=== PATIENT | male | born 1945 | race Caucasian/White ===

== ENCOUNTER 2021-07-02 18:29 | Inpatient (IN) ==
[2021-07-02 18:58] LABS: Appearance Urine Clear (Clear); Bilirubin Urine Negative (Negative); Blood Urine Negative (Negative); Color Urine Yellow; Glucose Urine UA Negative (Negative); Ketones Urine Negative (Negative); Leukocyte Esterase Urine Negative (Negative); Nitrite Urine Negative (Negative); Protein Urine Negative (Negative); Specific Gravity Urine 1.011 (1.000-1.030); Urobilinogen Urine Negative (Negative); pH Urine 6.5 (4.5-7.5)
[2021-07-02 19:03] LABS: Hematocrit (blood only) 37.4 % (42-52); Hemoglobin 12.3 g/dL (14.0-18.0); Mean Corpuscular Hemoglobin 30.1 pg (25-34); Mean Corpuscular Hgb Conc 32.9 g/dL (32-36); Mean Corpuscular Volume 91.7 fL (80-100); Mean Platelet Volume 9.2 fL (7.4-10.4); Platelet Count 267 K/uL (130-400); RDW Coefficient of Variation 12.9 % (11.5-14.5); RDW Standard Deviation 43.6 fL (36.4-46.3); Red Blood Count 4.08 M/uL (4.7-6.1); White Blood Count 7.97 K/uL (4.8-10.8)
[2021-07-02 19:19] LABS: BUN Creatinine Ratio 11.8 (10-20); Blood Urea Nitrogen 40 mg/dl (7-18); Calcium 8.4 mg/dl (8.5-10.1); Carbon Dioxide 28 mmol/L (21-32); Chloride 103 mmol/L (98-107); Creatinine Clr Calc Pharmacy 25.7 ml/min; Est GFR (African American) 19.5 ml/min; Est GFR (Non-African American) 16.8 ml/min; Glucose 104 mg/dl (70-99); Potassium 4.3 mmol/L (3.5-5.1); Sodium 137 mmol/L (136-145)
--- NOTE | 2021-07-02 19:47 | Emergency Department Note ---
Impression & Plan Acute kidney injury, Parkinson disease, Hypertension ED Provider Note NAME: ANDREI CHE AGE: 75 SEX: M : 1945 ARRIVES VIA: Walk-In INFORMANT: Patient ED PROVIDER(S): Liam Sullivan DO CHIEF COMPLAINT: weak and run down HPI: Patient is a 75-year-old male who presents the ER for weakness. [facility] and had acute kidney injury. He has a history of diabetes, CAD with stents, hypertension and BPH with no previous CKD. Patient denies any headache or change in vision. No chest pain or shortness of breath. No vomiting or diarrhea. He admits to intermittent nausea which is unchanged. Over the past several weeks he notes he has been having trouble urinating. He will only go a little bit time. ROS: See above HPI for pertinent positives & negatives. A total of 10 systems reviewed and were otherwise negative. PAST MEDICAL HISTORY:See Below PAST SURGICAL HISTORY:See Below FAMILY HISTORY:See Below SOCIAL HISTORY:See Below HOME MEDICATIONS:See Below ALLERGIES:See Below VITALS:See Below PHYSICAL EXAMINATION: GENERAL: Sitting up in bed, alert, well appearing, well nourished, no distress, non-toxic EYE EXAM: normal conjunctiva. OROPHARYNX: no exudate, no erythema, lips, buccal mucosa, and tongue normal and mucous membranes are moist NECK: supple, no nuchal rigidity, no adenopathy, non-tender LUNGS: Clear to auscultation. Normal chest wall mechanics HEART: no murmurs, S1 normal and S2 normal ABDOMEN: abdomen soft, non-tender, normo-active bowel sounds, no masses, no rebound or guarding. UPPER EXTREMITIES: upper extremities are grossly normal. LOWER EXTREMITIES: No pitting edema. NEURO EXAM: Normal sensorium, cranial nerves II-XII grossly intact, normal speech, no gross weakness of arms, no gross weakness of legs. MEDICAL DECISION MAKING: Patient is a 75-year-old male who presents the ER for acute kidney injury referred in by his PCP. IV was established blood work was obtained. Labs showed no significant leukocytosis or anemia. BMP with a creatinine of 3.4. No previous to go off of. From records sent over his no previous history of any CKD. T bili and LFTs were unremarkable. Lipase was normal. UA was clean. Post void was 0. Ultrasound of the kidneys and bladder was fairly unremarkable. Patient was given IV fluids updated bedside discussed with the hospitalist admitted to [facility]. Triage Nursing notes reviewed. Limited review of prior medical records performed Vital Signs: reviewed and remarkable for HTN Differential diagnosis: Infection, dehydration, metabolic abnormality, hypo/hyperglycemia, electrolyte disturbance, anemia, hypoxia, cardiac sources, intracerebral event, toxicologic, neurologic, as well as other pathologies. ER treatment provided: See below Diagnostics interpreted by me: Cardiac Monitoring: An order was placed for continuous cardiac monitoring. The monitor shows a rate of 52 with sinus rhythm. Laboratory studies: As stated above and show below. Imaging studies: Renal ultrasound showed no obstruction Consultation(s): Discussed with [facility] for further evaluation Procedures: none Critical Care: None Past Med/Surg History Medical History (Updated 07/02/21 @ 22:29 by Shaye Parra DO) Agent orange exposure [employer] GERD (gastroesophageal reflux disease) Thoracic aortic aneurysm Surgical History (Updated 07/02/21 @ 21:44 by Shaye Parra DO) H/O cataract removal with insertion of prosthetic lens History of endoscopy History of fundoplication S/P CABG x 4 Social History Smoking Status: Never smoker Feels Safe at Home: Yes Allergies Allergies Allergy/AdvReac Type Severity Reaction Status Date / Time No Known Allergies Allergy Verified 07/02/21 21:02 Home Meds Home Medications Medication Instructions Recorded Confirmed aspirin 81 mg tablet,delayed 81 mg PO DAILY 07/02/21 07/02/21 release atorvastatin 80 mg tablet 80 mg PO DAILY 07/02/21 07/02/21 carbidopa 25 mg-levodopa 100 mg 1.5 tab PO QID 07/02/21 07/02/21 tablet chlorthalidone 50 mg tablet 25 mg PO DAILY 07/02/21 07/02/21 gabapentin 300 mg capsule 300 mg PO QID 07/02/21 07/02/21 losartan 100 mg tablet 100 mg PO DAILY 07/02/21 07/02/21 metformin 500 mg tablet 500 mg PO DAILY 07/02/21 07/02/21 multivitamin 1 tab PO DAILY 07/02/21 07/02/21 omega 4-crn-osr-fish oil 1,000 mg 1 cap PO QID 07/02/21 07/02/21 (120 mg-180 mg) capsule (Fish Oil) rasagiline 1 mg tablet 1 mg PO DAILY 07/02/21 07/02/21 tamsulosin 0.4 mg capsule (Flomax) 0.4 mg PO DAILY 07/02/21 07/02/21 trazodone 50 mg tablet 50 mg PO HS 07/02/21 07/02/21 Results & Data (ED) Vital Signs Vital Signs - 24 hr 07/02/21 18:40 07/02/21 21:08 07/02/21 21:09 Temperature 36.7 C Temperature Source Temporal Artery Scan Pulse Rate 59 L 58 L Pulse Rate [Left Finger] 54 L Pulse Rate from SpO2 Sensor Pulse Rhythm Regular Respiratory Rate 18 18 20 Respiratory Effort / Characteristics Non-Labored Spontaneous Spontaneous Respiratory Depth Normal Blood Pressure 169/89 H Blood Pressure [Right Arm] 172/95 H Blood Pressure Mean 115 Blood Pressure Mean [Right Arm] 120 Pulse Oximetry 96 92 96 Oxygen Delivery Method Room Air Room Air Sepsis Recent Fever Within 48 Hours No Sepsis New/Unexplained Change in Mental Status No Sepsis Action Taken by Nursing No Action Required 07/02/21 21:10 07/02/21 21:20 07/02/21 21:30 Temperature Temperature Source Pulse Rate 51 L 54 L 59 L Pulse Rate [Left Finger] Pulse Rate from SpO2 Sensor 53 L 50 L Pulse Rhythm Respiratory Rate 20 20 20 Respiratory Effort / Characteristics Respiratory Depth Blood Pressure 172/95 H Blood Pressure [Right Arm] Blood Pressure Mean 120 Blood Pressure Mean [Right Arm] Pulse Oximetry 94 97 94 Oxygen Delivery Method Room Air Sepsis Recent Fever Within 48 Hours Sepsis New/Unexplained Change in Mental Status Sepsis Action Taken by Nursing 07/02/21 21:40 07/02/21 21:50 07/02/21 22:00 Temperature Temperature Source Pulse Rate 50 L 67 50 L Pulse Rate [Left Finger] Pulse Rate from SpO2 Sensor 51 L 64 53 L Pulse Rhythm Respiratory Rate 20 20 16 Respiratory Effort / Characteristics Respiratory Depth Blood Pressure Blood Pressure [Right Arm] Blood Pressure Mean Blood Pressure Mean [Right Arm] Pulse Oximetry 91 98 92 Oxygen Delivery Method Sepsis Recent Fever Within 48 Hours Sepsis New/Unexplained Change in Mental Status Sepsis Action Taken by Nursing 07/02/21 22:10 Temperature Temperature Source Pulse Rate 49 L Pulse Rate [Left Finger] Pulse Rate from SpO2 Sensor 49 L Pulse Rhythm Respiratory Rate 21 Respiratory Effort / Characteristics Respiratory Depth Blood Pressure Blood Pressure [Right Arm] Blood Pressure Mean Blood Pressure Mean [Right Arm] Pulse Oximetry 95 Oxygen Delivery Method Room Air Sepsis Recent Fever Within 48 Hours Sepsis New/Unexplained Change in Mental Status Sepsis Action Taken by Nursing Laboratory Data Result diagrams: 07/02/21 18:45 07/02/21 18:45 Lab Results 07/02/21 07/02/21 07/02/21 Range/Units 18:45 18:45 19:55 WBC 7.97 (4.8-10.8) K/uL RBC 4.08 L (4.7-6.1) M/uL Hgb 12.3 L (14.0-18.0) g/dL Hct 37.4 L (42-52) % MCV 91.7 (80-100) fL MCH 30.1 (25-34) pg MCHC 32.9 (32-36) g/dL RDW Std Deviation 43.6 (36.4-46.3) fL RDW Coeff of Sundeep 12.9 (11.5-14.5) % Plt Count 267 (130-400) K/uL MPV 9.2 (7.4-10.4) fL Sodium 137 (136-145) mmol/L Potassium 4.3 (3.5-5.1) mmol/L Chloride 103 (98-107) mmol/L Carbon Dioxide 28 (21-32) mmol/L Anion Gap 5.0 (3-11) BUN 40 H (7-18) mg/dl Creatinine 3.42 H (0.6-1.4) mg/dl Est Cr Clr Drug Dosing 25.7 ml/min Est GFR ( Amer) 19.5 ml/min Est GFR (Non-Af Amer) 16.8 ml/min BUN/Creatinine Ratio 11.8 (10-20) Glucose 104 H (70-99) mg/dl Calcium 8.4 L (8.5-10.1) mg/dl Total Bilirubin 0.4 (0.2-1) mg/dl Direct Bilirubin < 0.1 (0-0.2) mg/dl AST 20 (15-37) U/L ALT 9 L (12-78) Alkaline Phosphatase 63 (45-117) U/L Total Protein 7.0 (6.4-8.2) gm/dl Albumin 3.4 (3.4-5.0) gm/dl Lipase 172 (73-393) U/L Urine Color Urine Appearance (Clear) Urine pH (4.5-7.5) Ur Specific [place] (1.000-1.030) Urine Protein (Negative) Urine Glucose (UA) (Negative) Urine Ketones (Negative) Urine Blood (Negative) Urine Nitrite (Negative) Urine Bilirubin (Negative) Urine Urobilinogen (Negative) Ur Leukocyte Esterase (Negative) SARS-CoV-2, RNA, NAAT NEGATIVE (NEGATIVE) 07/02/21 Range/Units Unknown WBC (4.8-10.8) K/uL RBC (4.7-6.1) M/uL Hgb (14.0-18.0) g/dL Hct (42-52) % MCV (80-100) fL MCH (25-34) pg MCHC (32-36) g/dL RDW Std Deviation (36.4-46.3) fL RDW Coeff of Sundeep (11.5-14.5) % Plt Count (130-400) K/uL MPV (7.4-10.4) fL Sodium (136-145) mmol/L Potassium (3.5-5.1) mmol/L Chloride (98-107) mmol/L Carbon Dioxide (21-32) mmol/L Anion Gap (3-11) BUN (7-18) mg/dl Creatinine (0.6-1.4) mg/dl Est Cr Clr Drug Dosing ml/min Est GFR ( Amer) ml/min Est GFR (Non-Af Amer) ml/min BUN/Creatinine Ratio (10-20) Glucose (70-99) mg/dl Calcium (8.5-10.1) mg/dl Total Bilirubin (0.2-1) mg/dl Direct Bilirubin (0-0.2) mg/dl AST (15-37) U/L ALT (12-78) Alkaline Phosphatase (45-117) U/L Total Protein (6.4-8.2) gm/dl Albumin (3.4-5.0) gm/dl Lipase (73-393) U/L Urine Color Yellow Urine Appearance Clear (Clear) Urine pH 6.5 (4.5-7.5) Ur Specific [place] 1.011 (1.000-1.030) Urine Protein Negative (Negative) Urine Glucose (UA) Negative (Negative) Urine Ketones Negative (Negative) Urine Blood Negative (Negative) Urine Nitrite Negative (Negative) Urine Bilirubin Negative (Negative) Urine Urobilinogen Negative (Negative) Ur Leukocyte Esterase Negative (Negative) SARS-CoV-2, RNA, NAAT (NEGATIVE) Administered Medications Discontinued Medications Sodium Chloride (Nss 1000ml) 1,000 mls @ 999 mls/hr IV .Q1H1M ONE Stop: 07/02/21 20:49 Last Infusion: 07/02/21 22:15 Dose: 0 mls/hr Documented by: [id number] Admin: 07/02/21 21:06 Dose: 999 mls/hr Documented by: [id number] Imaging Data Radiologist's Impression: Renal Ultrasound 07/02/21 19:40 RENAL ULTRASOUND HISTORY: Acute kidney injury. COMPARISON: None. FINDINGS: Right kidney: 14.1 cm. A 4.3 cm lower pole cyst. No hydronephrosis. Increased cortical echogenicity. Normal cortical thickness. Left kidney: 15.3 cm. No hydronephrosis. Increased cortical echogenicity. Normal cortical thickness. Bladder: Not well-distended but appears unremarkable. The ureteral jets are not identified this time. The prostate gland is mildly enlarged. IMPRESSION: 1. No hydronephrosis. 2. A 4.3 cm right renal cyst. 3. Slight increased cortical echogenicity. This favors medical renal disease. ACT 112: Negative or not required by law. Electronically signed by: Hossein Hernandez M.D. 07/02/2021 8:45 PM Discharge Plan Visit Data Chief Complaint: Flank Pain Stated Complaint: ACUTE KIDNEY INJURY, REFER'D BY ED Provider: Liam Sullivan Discharge Problem: Acute kidney injury, Parkinson disease, Hypertension Forms Stand Alone Forms: My [facility] wireLawyer Prescriptions Prescriptions: No Action multivitamin Tablet 1 tab PO DAILY RF: 0 metformin 500 mg Tablet 500 mg PO DAILY RF: 0 atorvastatin 80 mg Tablet 80 mg PO DAILY RF: 0 trazodone 50 mg Tablet 50 mg PO HS RF: 0 chlorthalidone 50 mg Tablet 25 mg PO DAILY RF: 0 aspirin 81 mg Tablet,Delayed Release (Dr/Ec) 81 mg PO DAILY RF: 0 tamsulosin [Flomax] 0.4 mg Capsule 0.4 mg PO DAILY RF: 0 gabapentin 300 mg Capsule 300 mg PO QID RF: 0 carbidopa-levodopa 25-100 mg Tablet 1.5 tab PO QID RF: 0 losartan 100 mg Tablet 100 mg PO DAILY RF: 0 rasagiline 1 mg Tablet 1 mg PO DAILY RF: 0 omega 3-pqs-cbz-fish oil [Fish Oil] 1,000 mg (120 mg-180 mg) Capsule 1 cap PO QID RF: 0 Referrals Referrals: Shaan Bui DO [Primary Care Provider] -
[2021-07-02] MEDS ORDERED: SODIUM CHLORIDE 0.9% 1000ML 1,000 ML IV ONE (19:49)
[2021-07-02 19:51] LABS: Alanine Aminotransferase 9 (12-78); Albumin Level 3.4 gm/dl (3.4-5.0); Alkaline Phosphatase 63 U/L (45-117); Aspartate Aminotransferase 20 U/L (15-37); Bilirubin Direct < 0.1 mg/dl (0-0.2); Lipase 172 U/L (73-393)
--- NOTE | 2021-07-02 20:46 | Ultrasound Report ---
RENAL ULTRASOUND HISTORY: Acute kidney injury. COMPARISON: None. FINDINGS: Right kidney: 14.1 cm. A 4.3 cm lower pole cyst. No hydronephrosis. Increased cortical echogenicity. Normal cortical thickness. Left kidney: 15.3 cm. No hydronephrosis. Increased cortical echogenicity. Normal cortical thickness. Bladder: Not well-distended but appears unremarkable. The ureteral jets are not identified this time. The prostate gland is mildly enlarged. IMPRESSION: 1. No hydronephrosis. 2. A 4.3 cm right renal cyst. 3. Slight increased cortical echogenicity. This favors medical renal disease. ACT 112: Negative or not required by law. Electronically signed by: Hossein Hernandez M.D. 07/02/2021 8:45 PM
[2021-07-02 21:09] LABS: Bilirubin,Total 0.4 mg/dl (0.2-1)
--- NOTE | 2021-07-02 21:51 | History & Physical Report ---
Date of Service July 02, 2021 Assessment & Plan (1) Acute kidney injury: Plan: 75yo Male sent by [place] PCP due to elevated creatinine found incidentally on yearly routine labs. PMH exposure to agent orange, [place] , parkinson's, CABGx4, DM2, HTN, peripheral neuropathy. ()FREDDIE -Creatinine 3.42, BUN 40 on admit, found incidentally on outpt labs. -patient denies kidney history -possible related to hx 1wk rash presumed viral exanthem -UA neg, WBC wnl -potassium 4.3, no anion gap acidosis -received NS bolus -Renal US: 4.3cm cyst on right kidney lower pole, no hydronephrosis -consider consult to nephrology -ordered urine creatinine, urea -ordered creatine kinase -trend BMP ()Parkinson's -continue home carbidopa/levodopa -continue rasagilire mosyfate -continue HS trazadone -reduced gabapentin to 300mg BID given kidney function ()Cardiac Disease CABGx4 -continue home atorvastatin, ASA -hold chlorthalidone, losartan ()DM2 -hold metformin given kidney function -started on insulin, TDD 52, CF 34, CR 8.6 ()HTN -held chlorthalidone, losartan given his kidney function ()BPH -continue flomax ()Bladder Pain -Tylenol ordered PRN ()Constipation -miralax PRN ()Anemia -hbg 12.3 on admit unsure baseline -MCV 91.7 normal FENa: heart healthy Code Status: conditional DNR DVT PPX: Bryce Shaye Parra Do PGY 1, FCM (2) Parkinson disease: (3) Hx of CABG: (4) Diabetes mellitus: (5) Hypertension: History of Present Illness Chief Complaint: Acute Kidney Injury Primary Care Provider: Shaan Bui, DO 75yo Male sent by [place] PCP due to elevated creatinine found incidentally on yearly routine labs. PMH exposure to agent orange, [place] , parkinson's, CABGx4, DM2, HTN, peripheral neuropathy. Patient seen at bedside, calm comfortable cooperative, states he's not experiencing any symptoms at this time. He states 1 week ago he suddenly developed a rash across b/l arms, legs, and torso within a day, stated it was not painful or itchy, no other symptoms or illness, has never happened before, resolved after 1 week without intervention. Per picture it was a pink macular patchy rash, uniform in color. He states that he has had ongoing 'bladder pain' for 5-6 months, no difficulty or hesitancy urinating, cardiology has tried decreasing his water pill which hasn't helped, was originally going to see urology for the first time today missed appointment. Otherwise he states he has chronic constipation, secondary to his parkinsons. Patient states most of his medical conditions are secondary to his agent orange exposure in [place]. [facility] Montano [facility] 4 months. He follows with Dr. Rivera in cardiology after his cabgx4, in 1996 and 2002. Patient follows with neurology for parkinsons's, follows with podiatry. He lives alone without pets, no recent illness or exposures. He is in charge of his medication, takes them regularly. He denies smoking, alcohol, illicit drugs, drinks 1c coffee daily. He has COVID and flu vaccination. Per discussion with patient he is DNR, is ok with intubation. Allergies Allergy/AdvReac Type Severity Reaction Status Date / Time No Known Allergies Allergy Verified 07/02/21 21:02 Home Medications Medication Instructions Recorded Confirmed Type aspirin 81 mg tablet,delayed 81 mg PO DAILY 07/02/21 07/02/21 History release atorvastatin 80 mg tablet 80 mg PO DAILY 07/02/21 07/02/21 History carbidopa 25 mg-levodopa 100 mg 1.5 tab PO QID 07/02/21 07/02/21 History tablet chlorthalidone 50 mg tablet 25 mg PO DAILY 07/02/21 07/02/21 History gabapentin 300 mg capsule 300 mg PO QID 07/02/21 07/02/21 History losartan 100 mg tablet 100 mg PO DAILY 07/02/21 07/02/21 History metformin 500 mg tablet 500 mg PO DAILY 07/02/21 07/02/21 History multivitamin 1 tab PO DAILY 07/02/21 07/02/21 History omega 7-wjp-jou-fish oil 1,000 mg 1 cap PO QID 07/02/21 07/02/21 History (120 mg-180 mg) capsule (Fish Oil) rasagiline 1 mg tablet 1 mg PO DAILY 07/02/21 07/02/21 History tamsulosin 0.4 mg capsule (Flomax) 0.4 mg PO DAILY 07/02/21 07/02/21 History trazodone 50 mg tablet 50 mg PO HS 07/02/21 07/02/21 History Past Med/Surg History Medical History Agent orange exposure [employer] BPH (benign prostatic hyperplasia) GERD (gastroesophageal reflux disease) Thoracic aortic aneurysm Surgical History H/O cataract removal with insertion of prosthetic lens History of endoscopy History of fundoplication S/P CABG x 4 Social History Smoking Status: Never smoker Feels Safe at Home: Yes Review of Systems Review of Systems: Constipation, rash Negative fever chills Negative headache dizziness, cough Negative chest pain palpitations SOB Negative nausea vomitting diarrhea belly pain, back pain, difficulty urinating Negative swelling Physical Exam Constitutional: WD/WN, vitals as above cooperative, comfortable and + ov erweight Eyes: PERRL, conjunctivae normal, anicteric sclerae Neck: trachea midline, no thyromegaly Respiratory: normal respiratory effort, lungs clear to auscultation Cardiovascular: RRR, no murmur, no edema Heart Sounds: normal S1 and normal S2 Gastrointestinal (Abdomen): normal bowel sounds, soft, nontender, no hepatosplenomegaly Musculoskeletal: no cyanosis or clubbing, extremities motor strength 5/5 Skin: no rashes, warm and dry Neurologic: Motor/Sensory: + tremor (at rest in hands) Psychiatric: A+Ox3, euthymic affect Results & Data Results & Data ([facility] [place]) Vital Signs (Past 12 Hours) Vital Signs Temp Pulse Pulse Resp BP BP Pulse Ox 07/02/21 21:20 54 L 20 97 07/02/21 21:10 51 L 20 172/95 H 94 07/02/21 21:09 58 L 20 96 07/02/21 21:08 54 L 18 172/95 H 92 07/02/21 18:40 36.7 C 59 L 18 169/89 H 96 Laboratory Results 07/02/21 07/02/21 07/02/21 Range/Units Unknown 19:55 18:45 WBC (4.8-10.8) K/uL RBC (4.7-6.1) M/uL Hgb (14.0-18.0) g/dL Hct (42-52) % MCV (80-100) fL MCH (25-34) pg MCHC (32-36) g/dL RDW Std Deviation (36.4-46.3) fL RDW Coeff of Sundeep (11.5-14.5) % Plt Count (130-400) K/uL MPV (7.4-10.4) fL Sodium 137 (136-145) mmol/L Potassium 4.3 (3.5-5.1) mmol/L Chloride 103 (98-107) mmol/L Carbon Dioxide 28 (21-32) mmol/L Anion Gap 5.0 (3-11) BUN 40 H (7-18) mg/dl Creatinine 3.42 H (0.6-1.4) mg/dl Est Cr Clr Drug Dosing 25.7 ml/min Est GFR ( Amer) 19.5 ml/min Est GFR (Non-Af Amer) 16.8 ml/min BUN/Creatinine Ratio 11.8 (10-20) Glucose 104 H (70-99) mg/dl Calcium 8.4 L (8.5-10.1) mg/dl Total Bilirubin 0.4 (0.2-1) mg/dl Direct Bilirubin < 0.1 (0-0.2) mg/dl AST 20 (15-37) U/L ALT 9 L (12-78) Alkaline Phosphatase 63 (45-117) U/L Total Protein 7.0 (6.4-8.2) gm/dl Albumin 3.4 (3.4-5.0) gm/dl Lipase 172 (73-393) U/L Urine Color Yellow Urine Appearance Clear (Clear) Urine pH 6.5 (4.5-7.5) Ur Specific [place] 1.011 (1.000-1.030) Urine Protein Negative (Negative) Urine Glucose (UA) Negative (Negative) Urine Ketones Negative (Negative) Urine Blood Negative (Negative) Urine Nitrite Negative (Negative) Urine Bilirubin Negative (Negative) Urine Urobilinogen Negative (Negative) Ur Leukocyte Esterase Negative (Negative) SARS-CoV-2, RNA, NAAT NEGATIVE (NEGATIVE) 07/02/21 Range/Units 18:45 WBC 7.97 (4.8-10.8) K/uL RBC 4.08 L (4.7-6.1) M/uL Hgb 12.3 L (14.0-18.0) g/dL Hct 37.4 L (42-52) % MCV 91.7 (80-100) fL MCH 30.1 (25-34) pg MCHC 32.9 (32-36) g/dL RDW Std Deviation 43.6 (36.4-46.3) fL RDW Coeff of Sundeep 12.9 (11.5-14.5) % Plt Count 267 (130-400) K/uL MPV 9.2 (7.4-10.4) fL Sodium (136-145) mmol/L Potassium (3.5-5.1) mmol/L Chloride (98-107) mmol/L Carbon Dioxide (21-32) mmol/L Anion Gap (3-11) BUN (7-18) mg/dl Creatinine (0.6-1.4) mg/dl Est Cr Clr Drug Dosing ml/min Est GFR ( Amer) ml/min Est GFR (Non-Af Amer) ml/min BUN/Creatinine Ratio (10-20) Glucose (70-99) mg/dl Calcium (8.5-10.1) mg/dl Total Bilirubin (0.2-1) mg/dl Direct Bilirubin (0-0.2) mg/dl AST (15-37) U/L ALT (12-78) Alkaline Phosphatase (45-117) U/L Total Protein (6.4-8.2) gm/dl Albumin (3.4-5.0) gm/dl Lipase (73-393) U/L Urine Color Urine Appearance (Clear) Urine pH (4.5-7.5) Ur Specific [place] (1.000-1.030) Urine Protein (Negative) Urine Glucose (UA) (Negative) Urine Ketones (Negative) Urine Blood (Negative) Urine Nitrite (Negative) Urine Bilirubin (Negative) Urine Urobilinogen (Negative) Ur Leukocyte Esterase (Negative) SARS-CoV-2, RNA, NAAT (NEGATIVE) Diagnostic Findings Renal Ultrasound 07/02/21 19:40 RENAL ULTRASOUND HISTORY: Acute kidney injury. COMPARISON: None. FINDINGS: Right kidney: 14.1 cm. A 4.3 cm lower pole cyst. No hydronephrosis. Increased cortical echogenicity. Normal cortical thickness. Left kidney: 15.3 cm. No hydronephrosis. Increased cortical echogenicity. Normal cortical thickness. Bladder: Not well-distended but appears unremarkable. The ureteral jets are not identified this time. The prostate gland is mildly enlarged. IMPRESSION: 1. No hydronephrosis. 2. A 4.3 cm right renal cyst. 3. Slight increased cortical echogenicity. This favors medical renal disease. ACT 112: Negative or not required by law. Electronically signed by: Hossein Hernandez M.D. 07/02/2021 8:45 PM Supervising Physician Co-Signing Physician Notes Patient seen and examined, chart reviewed, case discussed with Dr. Parra and I agree with the assessment and plan as outlined above. In brief, patient is a 75yo male with history of HTN, DM, PD and CAD s/p CABG x 4V presenting with incidentally discovered FREDDIE with BUN of 40 and Cr of 3.42. Patient denies urinary complaints. He is uncertain of preexisting renal disease. No recent illness although he does describe a rash appx 1 week ago which has since resolved. No new medications or changes in medications. Patient states he is eating well at home. No diarrhea, vomiting. On exam he is tremulous secondary to PD, NAD but is upset about his ongoing tremor HEENT - NC/AT, PERRL, MMM, neck supple Heart - +S1/S2, regular Lungs - CTA Abd - +BS, soft, NT/ND Ext- No edema No CVA tenderness Clear yellow urine in urinal at bedside Labs and images reviewed. K=4.3, HCO3=28, no anion gap Assessment/Plan - 75yo male with HTN, DM, CAD and PD presenting with worsening renal function found incidentally on labs. Uncertain of baseline renal function - no previous labs in system. Patient does not provide history consistent with volume loss - states he is eating well at home, no vomiting or diarrhea Recent rash ?viral infection ?allergic reaction ?strep infection UA is not consistent with infection or inflammation. No blood, protein, leukocytes. Renal US without obstruction or hydronephrosis. Suggests medical renal disease - patient with history of DM and CAD Patient is making urine and is metabolically stable - no need for HD -Request records from [place] to compare renal function -Check UA with microscopy -Check urine Na and urea to calculate FeUREA as patient is on diuretic medication -Check Antistreptolysin O for possible recent strep infection -Check CK total -Continue hydration with LR at 125mL/hr x 2 liters -Repeat chemistry in AM -montior UOP -Avoid nephrotoxic agents - Hold Losartan and Clorthalidone -Renal dosing where needed - Gabapentin reduced -Consider Nephrology consultation. -Remainder as above Resident Activity Tracking Resident Involvement: Resident Care Provided Care Provided: Adult Hospital Medicine
[2021-07-02] MEDS ORDERED: traZODone HCL 50 MG TAB PO ONE (22:27)
[2021-07-02] MEDS ORDERED: CARBIDOPA/LEVODOPA 25/100MG TAB ODT PO STA (23:04)
[2021-07-02] MEDS ORDERED: ACETAMINOPHEN 325 MG TAB PO PRN (23:39)
[2021-07-02] MEDS ORDERED: POLYETHYLENE (MIRALAX) 17 GM PACK PO PRN (23:39)
[2021-07-03 00:33] LABS: Creatine Kinase 87 U/L (39-308)
--- NOTE | 2021-07-03 00:37 | Billing Data ---
Date of Service July 02, 2021 Coding Level of Care Code 68709 Initial Inpt Care Lvl 3
[2021-07-03] MEDS: LACTATED RINGER'S 1,000 ML IV SCH ×2 (00:49→08:03)
[2021-07-03 01:11] LABS: Appearance Urine Clear (Clear); Bilirubin Urine Negative (Negative); Blood Urine Negative (Negative); Color Urine Yellow; Glucose Urine UA Negative (Negative); Ketones Urine Negative (Negative); Leukocyte Esterase Urine Negative (Negative); Nitrite Urine Negative (Negative); Protein Urine Negative (Negative); Specific Gravity Urine 1.007 (1.000-1.030); Urobilinogen Urine Negative (Negative)
[2021-07-03 05:56] LABS: Basophils # (auto) 0.03 K/uL (0-0.2); Basophils % (auto) 0.4 %; Eosinophils # (auto) 0.34 K/uL (0-0.5); Hematocrit (blood only) 32.7 % (42-52); Hemoglobin 10.7 g/dL (14.0-18.0); Immature Granulocytes # (auto) 0.02 K/uL (0.00-0.02); Immature Granulocytes % (auto) 0.3 %; Lymphocytes # (auto) 1.21 K/uL (1.2-3.4); Lymphocytes % (auto) 17.8 %; Mean Corpuscular Hemoglobin 30.1 pg (25-34); Mean Corpuscular Hgb Conc 32.7 g/dL (32-36); Mean Corpuscular Volume 92.1 fL (80-100); Mean Platelet Volume 9.2 fL (7.4-10.4); Monocytes # (auto) 0.65 K/uL (0.11-0.59); Monocytes % (auto) 9.6 %; Neutrophils # (auto) 4.55 K/uL (1.4-6.5); Neutrophils % (auto) 66.9 %; Platelet Count 248 K/uL (130-400); RDW Coefficient of Variation 12.9 % (11.5-14.5); RDW Standard Deviation 44.1 fL (36.4-46.3); Red Blood Count 3.55 M/uL (4.7-6.1)
[2021-07-03] MEDS: CARBIDOPA/LEVODOPA 25/100MG TAB PO SCH ×4 (06:24→17:49)
[2021-07-03 06:25] LABS: BUN Creatinine Ratio 12.3 (10-20); Calcium 8.2 mg/dl (8.5-10.1); Creatinine Clr Calc Pharmacy 30.6 ml/min; Est GFR (African American) 24.1 ml/min; Est GFR (Non-African American) 20.8 ml/min
[2021-07-03] MEDS ORDERED: Nursing to Pharmacy Communication SCH (06:30)
--- NOTE | 2021-07-03 07:58 | Hospitalist Progress Note ---
Date of Service July 03, 2021 Assessment & Plan (1) Acute kidney injury: Plan: 75yo Male with PMH exposure to agent orange, parkinson's, CABGx4, DM2, HTN, peripheral neuropathy [facility] creatinine found incidentally on yearly routine labs. ()FREDDIE -Creatinine 3.42, BUN 40 on admit, found incidentally on outpt labs. -UA neg, WBC wnl -received NS bolus - Continue LR @ 125 cc/hr -Renal US: 4.3cm cyst on right kidney lower pole, no hydronephrosis -Nephrology consulted: - Suspect FREDDIE due to relative hypotension - Agree w/ stopping ARB and thiazide - Continue gentle hydration ()Parkinson's -continue home carbidopa/levodopa -continue rasagiline mosyfate -continue HS trazadone -reduced gabapentin to 300mg BID given kidney function ()Cardiac Disease CABGx4 -continue home atorvastatin, ASA -hold chlorthalidone, losartan ()DM2 -hold metformin given kidney function -SSI while admitted ()HTN -held chlorthalidone, losartan given his kidney function - Per npehro c/s: * Agree w/ stopping Losartan and Chlorthalidone due to FREDDIE * If BP trends up, consider low dose Amlodipine therapy ()BPH -continue Flomax ()Bladder Pain -Tylenol ordered PRN ()Constipation -miralax PRN ()Anemia -hbg 12.3 on admit unsure baseline -MCV 91.7 normal FENGI: heart healthy diet, LR 125cc/hr Code Status: conditional DNR DVT PPX: Heparin SQ Dispo: Med/Tele (2) Parkinson disease: (3) Hx of CABG: (4) Diabetes mellitus: (5) Hypertension: Admission and Anticipated Discharge Date Admission Date: July 02, 2021 Supervising Physician Co-Signing Physician Notes Patient seen and examined, chart reviewed, case discussed with Dr. Lakshmi Prescott and I agree with the assessment and plan as outlined above. In brief, patient is a 75yo male with history of HTN, DM, PD and CAD s/p CABG x 4V presenting with incidentally discovered FREDDIE with BUN of 40 and Cr of 3.42. Patient denies urinary complaints. He is uncertain of preexisting renal disease. No recent illness although he does describe a rash appx 1 week ago which has since resolved. No new medications or changes in medications. Patient states he is eating well at home. No diarrhea, vomiting. HEENT - NC/AT, PERRL, MMM, neck supple Clear yellow urine in urinal at bedside Labs and images reviewed. Assessment/Plan - 75yo male with HTN, DM, CAD and PD presenting with worsening renal function found incidentally on labs. Uncertain of baseline renal function - no previous labs in system. Patient does not provide history consistent with volume loss - states he is eating well at home, no vomiting or diarrhea Recent rash ?viral infection ?allergic reaction ?strep infection UA is not consistent with infection or inflammation. No blood, protein, leukocytes. Renal US without obstruction or hydronephrosis. Suggests medical renal disease - patient with history of DM and CAD Patient is making urine and is metabolically stable - no need for HD -montior UOP -Avoid nephrotoxic agents - Hold Losartan and Clorthalidone -Renal dosing where needed - Gabapentin reduced -Ordered Nephrology consultation. -Remainder as above Subjective Seen at bedside this AM. Reports feeling well. Denying SANTOS, dizziness, n/v, abd pain, CP, palp, SOB, cough. He did report recently his BP has been running quite low to the point where he passed out at home. Review of Systems Review of Systems: per subjective Physical Exam Physical Exam: GENERAL: A&Ox3. NAD. HEENT: PERRL, EOMI. Moist mucous membranes. CHEST/LUNGS: CTAB A/P. No crackles, wheezes, rales, rhonchi. HEART: RRR. No m/g/r. ABDOMEN: NT/ND, soft. BS+ x4 EXTREMITIES: 1+ edema bilaterally (baseline per pt). No cyanosis, no clubbing. NEUROLOGIC: No FND. CN II-XII grossly intact. Results & Data Results & Data ([facility]) Vital Signs (Past 12 Hours) Vital Signs Temp Pulse Pulse Resp BP BP Pulse Ox 07/03/21 07:31 40 L 16 131/76 94 07/03/21 03:00 36.7 C 47 L 18 130/78 95 07/03/21 01:07 84 16 136/89 95 07/02/21 22:40 51 L 20 94 07/02/21 22:30 51 L 20 95 07/02/21 22:20 56 L 20 97 07/02/21 22:10 49 L 21 95 07/02/21 22:00 50 L 16 92 07/02/21 21:50 67 20 98 07/02/21 21:40 50 L 20 91 07/02/21 21:30 59 L 20 94 07/02/21 21:20 54 L 20 97 07/02/21 21:10 51 L 20 172/95 H 94 07/02/21 21:09 58 L 20 96 07/02/21 21:08 54 L 18 172/95 H 92 Resident Activity Tracking Resident Involvement: Resident Care Provided Care Provided: Adult Hospital Medicine
[2021-07-03] MEDS: ASPIRIN 81 MG ECTAB PO SCH (08:06)
[2021-07-03] MEDS: ATORVASTATIN 40 MG TAB PO SCH (08:06)
[2021-07-03] MEDS: TAMSULOSIN HCL 0.4 MG CAP PO SCH (08:07)
[2021-07-03] MEDS: OMEGA-3 (PURIFIED FISH OIL) 1 GM CAP PO SCH ×4 (08:07→21:24)
[2021-07-03] MEDS: GABAPENTIN 300 MG CAP PO SCH ×2 (08:08→21:24)
[2021-07-03] MEDS: MULTIVITAMIN TAB PO SCH (08:08)
[2021-07-03] MEDS ORDERED: CARBIDOPA/LEVODOPA 25/100MG TAB PO SCH (09:00)
--- NOTE | 2021-07-03 12:12 | Nephrology Consultation ---
Date of Consultation July 03, 2021 Assessment & Plan (1) Acute kidney injury: * Urine sediment is non-nephritic. Renal US is negative for obstruction. Suspect FREDDIE due to relative hypotension * Agree w/ stopping ARB and thiazide * Continue gentle hydration * Monitor PRP * Baseline Cr is unknown. Await records[facility]labs from [facility] (2) Hypertension: * Patient reports labile BP, most recently low and associated w/ syncopal event * Agree w/ stopping Losartan and Chlorthalidone due to FREDDIE * If BP trends up, consider low dose Amlodipine therapy (3) Diabetes mellitus: * Recommend holding Metformin until FREDDIE resolves and manage DM w/ RISS (4) Neuropathy: * Recommend reducing Gabapentin to 300 mg daily until FREDDIE resolves (5) Parkinson disease: History of Present Illness Reason for Consultation: FREDDIE Attending Physician: Alex Stubbs History of Present Illness Mr. Franklin is a 75 year old white male who is seen at the request of the [facility] for evaluation of FREDDIE. Medical records in the EMR were reviewed today and are summarized as follows: Mr. Franklin is a and had his medical care through the [facility]. His medical history is significant for Parkinson's disease, HTN, AODM, ASCVD s/p stent x4, exposurt to agent orange and peripheral neuropathy. He denies any prior h/o kidney disease. Specifically he has had not fever, flank pain, gross hematuria, foamy urine or difficulty voiding. He has not taken NSAIDS, herbal supplements on a regular basis. He denies N/V/D. Mr. Franklin reports that over the last 2 months his BP has steadily dropped. His SBP was regularly in the low to mid 70's and he suffered one syncopal event at home without injury. Recently Mr. Franklin had laboratory studies completed for his [facility] physician. Cr was elevated at 3.42 and EMD evaluation was advised. Since admission to the hospital Mr. Franklin has received IV hydration, Losartan and Chlorthalidone have been stopped. Metformin is being held. Renal US was negative for stone/mass/obstruction. Cr has improved to 2.87 with conservative measures. Patient did relate a recent h/o diffuse petechial rash. ASO titer is pending. Allergies Allergy/AdvReac Type Severity Reaction Status Date / Time No Known Allergies Allergy Verified 07/02/21 21:02 Home Medications Medication Instructions Recorded Confirmed Type aspirin 81 mg tablet,delayed 81 mg PO DAILY 07/02/21 07/02/21 History release atorvastatin 80 mg tablet 80 mg PO DAILY 07/02/21 07/02/21 History carbidopa 25 mg-levodopa 100 mg 1.5 tab PO QID 07/02/21 07/02/21 History tablet chlorthalidone 50 mg tablet 25 mg PO DAILY 07/02/21 07/02/21 History gabapentin 300 mg capsule 300 mg PO QID 07/02/21 07/02/21 History losartan 100 mg tablet 100 mg PO DAILY 07/02/21 07/02/21 History metformin 500 mg tablet 500 mg PO DAILY 07/02/21 07/02/21 History multivitamin 1 tab PO DAILY 07/02/21 07/02/21 History omega 4-iuf-bic-fish oil 1,000 mg 1 cap PO QID 07/02/21 07/02/21 History (120 mg-180 mg) capsule (Fish Oil) rasagiline 1 mg tablet 1 mg PO DAILY 07/02/21 07/02/21 History tamsulosin 0.4 mg capsule (Flomax) 0.4 mg PO DAILY 07/02/21 07/02/21 History trazodone 50 mg tablet 50 mg PO HS 07/02/21 07/02/21 History Patient History Medical History Agent orange exposure [employer] BPH (benign prostatic hyperplasia) GERD (gastroesophageal reflux disease) Thoracic aortic aneurysm Surgical History H/O cataract removal with insertion of prosthetic lens History of endoscopy History of fundoplication S/P CABG x 4 Social History Smoking Status: Never smoker Feels Safe at Home: Yes Review of Systems Constitutional: + weakness; no fever Eyes: no worsening vision Ear, Nose, Mouth, Throat: no problem reported Respiratory: no cough and no dyspnea Cardiovascular: no chest pain, no palpitations and no edema Gastrointestinal: no abdominal pain, no nausea, no vomiting and no diarrhea/loose stools Genitourinary: no dysuria, no urinary hesitancy or no hematuria Musculoskeletal: no back pain Integumentary: no rash Neurologic: no confusion Physical Exam Constitutional: not in distress Eyes: PERRL, conjunctivae normal, anicteric sclerae ENMT: external ear and nose normal, oropharynx normal Neck: trachea midline, no thyromegaly Respiratory: normal respiratory effort, lungs clear to auscultation Cardiovascular: Rate/Rhythm: regular rate and regular rhythm Extremities: + edema (trace pretibial pitting edema) Gastrointestinal (Abdomen): normal bowel sounds, soft, nontender, no hepatosplenomegaly Skin: no rashes, warm and dry Neurologic: awake; not confused Motor/Sensory: + tremor Results & Data ([facility]) Vital Signs (Past 12 Hours) Vital Signs Temp Pulse Resp BP Pulse Ox 07/03/21 10:55 46 L 16 143/75 H 96 07/03/21 07:31 40 L 16 131/76 94 07/03/21 03:00 36.7 C 47 L 18 130/78 95 07/03/21 01:07 84 16 136/89 95 Laboratory Results Laboratory Tests 07/03/21 07/03/21 07/03/21 01:04 01:04 05:13 WBC 6.80 Hgb 10.7 L Hct 32.7 L Plt Count 248 Sodium Potassium Chloride Carbon Dioxide BUN Creatinine Urine Color Yellow Urine Appearance Clear Urine pH 7.0 Ur Specific Superior 1.007 Urine Protein Negative Urine Glucose (UA) Negative Urine Ketones Negative Urine Blood Negative Urine Nitrite Negative Urine Bilirubin Negative Ur Leukocyte Esterase Negative Ur Random Creatinine 38.0 Ur Random Urea Nitrogn 254 07/03/21 05:13 WBC Hgb Hct Plt Count Sodium 137 Potassium 4.0 Chloride 106 Carbon Dioxide 24 BUN 35 H Creatinine 2.87 H D Urine Color Urine Appearance Urine pH Ur Specific Superior Urine Protein Urine Glucose (UA) Urine Ketones Urine Blood Urine Nitrite Urine Bilirubin Ur Leukocyte Esterase Ur Random Creatinine Ur Random Urea Nitrogn Diagnostic Findings 07/02/21 Renal US: Right kidney: 14.1 cm. A 4.3 cm lower pole cyst. No hydronephrosis. Increased cortical echogenicity. Normal cortical thickness. Left kidney: 15.3 cm. No hydronephrosis. Increased cortical echogenicity. Normal cortical thickness. Bladder: Not well-distended but appears unremarkable. The ureteral jets are not identified this time. The prostate gland is mildly enlarged. PG Care Time/CCT Total # of Minutes Spent Total Time Spent with Patient: Total time spent is greater than 50% in coordination of care (as documented) at patient's floor/unit and/or counseling patient: Coding Level of Care Code 32742 Inpt Consult Level 5 Diagnoses Acute kidney injury N17.9 Hypertension I10 Diabetes mellitus E11.9 Parkinson disease G20 Neuropathy G62.9
[2021-07-03] MEDS ORDERED: PHARMACY GLYCEMIC MGMT CONSULT PRN (18:27)
[2021-07-03] MEDS ORDERED: CARBOHYDRATES FOR HYPOGLYCEMIA PO PRN (19:15)
[2021-07-03] MEDS ORDERED: GLUCOSE 10 TABS/TUBE PO PRN (19:15)
[2021-07-03] MEDS ORDERED: GLUCAGON FOR INJ 1 MG VIAL IM PRN (19:15)
[2021-07-03] MEDS ORDERED: GLUCOSE 40% GEL 15 GM TUBE PO PRN (19:15)
[2021-07-03] MEDS ORDERED: DEXTROSE 50% 50 ML SYRINGE IV PRN (19:15)
--- NOTE | 2021-07-03 20:13 | Billing Data ---
Date of Service July 03, 2021 Coding Level of Care Code 23510 Subseq Hosp Care Lvl 2
[2021-07-03] MEDS: traZODone HCL 50 MG TAB PO SCH (21:25)
[2021-07-03] MEDS: INSULIN ASPART PER UNIT SC SCH (21:25)
[2021-07-03] MEDS: HEPARIN SOD 5,000 UNIT/0.5 ML VIAL SQ SCH (21:28)
[2021-07-04] MEDS: CARBIDOPA/LEVODOPA 25/100MG TAB PO SCH ×4 (06:12→17:31)
[2021-07-04 06:46] LABS: Basophils # (auto) 0.03 K/uL (0-0.2); Basophils % (auto) 0.5 %; Eosinophils # (auto) 0.32 K/uL (0-0.5); Eosinophils % (auto) 4.9 %; Hematocrit (blood only) 34.4 % (42-52); Hemoglobin 11.6 g/dL (14.0-18.0); Immature Granulocytes # (auto) 0.01 K/uL (0.00-0.02); Immature Granulocytes % (auto) 0.2 %; Lymphocytes # (auto) 1.13 K/uL (1.2-3.4); Lymphocytes % (auto) 17.2 %; Mean Corpuscular Hemoglobin 30.9 pg (25-34); Mean Corpuscular Hgb Conc 33.7 g/dL (32-36); Mean Corpuscular Volume 91.5 fL (80-100); Mean Platelet Volume 9.2 fL (7.4-10.4); Monocytes # (auto) 0.72 K/uL (0.11-0.59); Monocytes % (auto) 10.9 %; Neutrophils # (auto) 4.37 K/uL (1.4-6.5); Neutrophils % (auto) 66.3 %; Platelet Count 239 K/uL (130-400); RDW Standard Deviation 43.7 fL (36.4-46.3); Red Blood Count 3.76 M/uL (4.7-6.1); White Blood Count 6.58 K/uL (4.8-10.8)
--- NOTE | 2021-07-04 07:21 | Hospitalist Progress Note ---
Date of Service July 04, 2021 Assessment & Plan (1) Acute kidney injury: Plan: 75yo Male with PMH exposure to agent orange, parkinson's, CABGx4, DM2, HTN, peripheral neuropathy [facility] creatinine found incidentally on yearly routine labs. FREDDIE - improving -Creatinine 3.42, BUN 40 on admit, found incidentally on outpt labs. -UA neg, WBC wnl - Cr downtrending further today to 2.69 - Continue LR @ 125 cc/hr - Renal US: 4.3cm cyst on right kidney lower pole, no hydronephrosis -Nephrology consulted: - Suspect FREDDIE due to relative hypotension - Agree w/ stopping ARB and thiazide - Continue gentle hydration - Creatinine improving but still elevated - Monitor BMP in AM Parkinson's -continue home carbidopa/levodopa -continue rasagiline mosyfate -continue HS trazadone -reduced gabapentin to 300mg BID given kidney function CAD - h/o CABGx4 -continue home atorvastatin, ASA -hold chlorthalidone, losartan DM2 -hold metformin given kidney function -SSI while admitted HTN -held chlorthalidone, losartan given his kidney function - Per npehro c/s: - Agree w/ stopping Losartan and Chlorthalidone due to FREDDIE - If BP trends up, consider low dose Amlodipine therapy BPH -continue Flomax Constipation -miralax PRN FENGI: heart healthy diet, LR 125cc/hr Code Status: conditional DNR DVT PPX: Heparin SQ Dispo: Med/Tele (2) Parkinson disease: (3) Hx of CABG: (4) Diabetes mellitus: (5) Hypertension: Admission and Anticipated Discharge Date Admission Date: July 02, 2021 Supervising Physician Co-Signing Physician Notes Patient seen and examined, chart reviewed, case discussed with Dr. Lakshmi Prescott and I agree with the assessment and plan as outlined above. In brief, patient is a 75yo male with history of HTN, DM, PD and CAD s/p CABG x 4V presenting with incidentally discovered FREDDIE with BUN of 40 and Cr of 3.42. Patient denies urinary complaints. He is uncertain of preexisting renal disease. No recent illness although he does describe a rash appx 1 week ago which has since resolved. No new medications or changes in medications. Patient states he is eating well at home. No diarrhea, vomiting. HEENT - NC/AT, PERRL, MMM, neck supple Clear yellow urine in urinal at bedside Labs and images reviewed. Assessment/Plan - 75yo male with HTN, DM, CAD and PD presenting with worsening renal function found incidentally on labs. Uncertain of baseline renal function - no previous labs in system. Patient does not provide history consistent with volume loss - states he is eating well at home, no vomiting or diarrhea Recent rash ?viral infection ?allergic reaction ?strep infection UA is not consistent with infection or inflammation. No blood, protein, leukocytes. Renal US without obstruction or hydronephrosis. Suggests medical renal disease - patient with history of DM and CAD Patient is making urine and is metabolically stable - no need for HD -Creatinine is improving. Will continue IVF. -Appreciate input from Nephro. -montior UOP -Avoid nephrotoxic agents - Hold Losartan and Clorthalidone -Renal dosing where needed - Gabapentin reduced -Ordered Nephrology consultation. -Remainder as above Subjective Patient seen this AM. He was walking from the bathroom to his bed without difficulty. He feels well and has no complaints. Denies f/c, n/v, abd pain, SOB, CP, SANTOS, dizziness. Review of Systems Review of Systems: per subjective Physical Exam Physical Exam: GENERAL: A&Ox3. NAD. HEENT: PERRL, EOMI. Moist mucous membranes. CHEST/LUNGS: CTAB A/P. No crackles, wheezes, rales, rhonchi. HEART: RRR. No m/g/r. Results & Data Results & Data ([facility]) Vital Signs (Past 12 Hours) Vital Signs Temp Pulse Pulse Resp BP Pulse Ox 07/04/21 03:11 37 C 79 16 122/68 95 07/03/21 23:32 36 L 07/03/21 23:29 37.3 C 72 18 145/74 H 94 07/03/21 19:53 37.3 C 82 18 125/68 93 Resident Activity Tracking Resident Involvement: Resident Care Provided Care Provided: Adult Hospital Medicine
[2021-07-04 07:26] LABS: BUN Creatinine Ratio 14.2 (10-20); Calcium 8.5 mg/dl (8.5-10.1); Creatinine Clr Calc Pharmacy 32.5 ml/min; Est GFR (Non-African American) 22.5 ml/min; Potassium 4.1 mmol/L (3.5-5.1)
[2021-07-04 08:30] LABS: Estimated Average Glucose 128 mg/dl; Hemoglobin A1C 6.1 % (4.5-5.6)
[2021-07-04] MEDS: OMEGA-3 (PURIFIED FISH OIL) 1 GM CAP PO SCH ×4 (08:32→20:36)
[2021-07-04] MEDS: TAMSULOSIN HCL 0.4 MG CAP PO SCH (08:32)
[2021-07-04] MEDS: ASPIRIN 81 MG ECTAB PO SCH (08:32)
[2021-07-04] MEDS: ATORVASTATIN 40 MG TAB PO SCH (08:32)
[2021-07-04] MEDS: MULTIVITAMIN TAB PO SCH (08:32)
[2021-07-04] MEDS: GABAPENTIN 300 MG CAP PO SCH ×2 (08:32→20:37)
[2021-07-04] MEDS: HEPARIN SOD 5,000 UNIT/0.5 ML VIAL SQ SCH ×2 (08:33→20:37)
[2021-07-04] MEDS: INSULIN ASPART PER UNIT SC SCH ×4 (08:34→21:22)
[2021-07-04] MEDS: LACTATED RINGER'S 1,000 ML IV SCH ×2 (10:30→19:20)
--- NOTE | 2021-07-04 10:32 | Nephrology Progress Note ---
Date of Service July 04, 2021 Assessment & Plan (1) Acute kidney injury: Plan: * Cr has improved from 3.4 down to 2.7 with conservative measures * Patient is nonoliguric. Urine sediment is non-nephritic. Renal US is negative for obstruction. Suspect FREDDIE due to relative hypotension * Continue to hold ARB and thiazide * BP has improved. IVF have been stopped * Baseline Cr is unknown. Records/labs have been requested from [facility] (2) Hypertension: Plan: * Patient reports labile BP, most recently low and associated w/ syncopal event * Agree w/ stopping Losartan and Chlorthalidone due to FREDDIE * If BP trends up, consider low dose Amlodipine therapy (3) Diabetes mellitus: Plan: * Recommend holding Metformin until FREDDIE resolves and manage DM w/ RISS (4) Neuropathy: Plan: * Recommend reducing Gabapentin to 300 mg daily until FREDDIE resolves (5) Parkinson disease: Admission and Anticipated Discharge Date Admission Date: July 02, 2021 Subjective Mr. Franklin was evaluated in his hospital room this morning. He denied fever, flank pain, difficulty voiding or uremic symptoms. He voiced no new medical concerns. Review of Systems Constitutional: + weakness; no fever Eyes: no worsening vision Ear, Nose, Mouth, Throat: no problem reported Respiratory: no cough and no dyspnea Cardiovascular: no chest pain, no palpitations and no edema Gastrointestinal: no abdominal pain, no nausea, no vomiting and no diarrhea/loose stools Genitourinary: no dysuria, no urinary hesitancy or no hematuria Musculoskeletal: no back pain Integumentary: no rash Neurologic: no confusion Physical Exam Constitutional: not in distress Eyes: PERRL, conjunctivae normal, anicteric sclerae ENMT: external ear and nose normal, oropharynx normal Neck: trachea midline, no thyromegaly Respiratory: normal respiratory effort, lungs clear to auscultation Cardiovascular: Rate/Rhythm: regular rate and regular rhythm Extremities: + edema (trace pretibial pitting edema) Gastrointestinal (Abdomen): normal bowel sounds, soft, nontender, no hepatosplenomegaly Skin: no rashes, warm and dry Neurologic: awake; not confused Motor/Sensory: + tremor Results & Data ([facility]) Vital Signs (Past 12 Hours) Vital Signs Temp Pulse Pulse Resp BP BP Pulse Ox 07/04/21 07:54 36.2 C L 41 L 16 162/82 H 90 07/04/21 07:28 42 L 07/04/21 03:11 37 C 79 16 122/68 95 07/03/21 23:32 36 L 07/03/21 23:29 37.3 C 72 18 145/74 H 94 Laboratory Results Laboratory Tests 07/04/21 07/04/21 06:30 06:30 WBC 6.58 Hgb 11.6 L Hct 34.4 L Plt Count 239 Sodium 138 Potassium 4.1 Chloride 106 Carbon Dioxide 25 BUN 38 H Creatinine 2.69 H Glucose 85 Calcium 8.5 PG Care Time/CCT Total # of Minutes Spent Total Time Spent with Patient: Total time spent is greater than 50% in coordination of care (as documented) at patient's floor/unit and/or counseling patient: Coding Level of Care Code 23845 Subseq Hosp Care Lvl 3 Diagnoses Acute kidney injury N17.9 Hypertension I10 Diabetes mellitus E11.9 Neuropathy G62.9 Parkinson disease G20
--- NOTE | 2021-07-04 12:12 | Pharmacy Report ---
Pharmacy Glycemic Short Note 2 - Date of Service July 04, 2021 - Glycemic Short BSG Results (Last 24 hours): 07/03/21 07/03/21 07/04/21 18:04 20:35 06:30 Glucose 85 POC Glucose 100 H 125 H 07/04/21 07/04/21 07:12 11:00 Glucose POC Glucose 94 103 H OUTPATIENT ANTIDIABETIC REGIMEN: * metformin 500mg PO daily * A1c = 6.1% 07/04/21 ASSESSMENT: * Type 2 diabetic admitted for FREDDIE possibly from relative hypotension * He was well controlled with metformin monotherapy however this is held in light of FREDDIE * Will initiate weight-based Novolog SQ using "mild" stress doses as pt likely remains fairly insulin sensitive PLAN FOR INPATIENT GLYCEMIC CONTROL: * Hold outpatient oral diabetes medications (metformin) * Basal insulin * none at this time * Bolus insulin * NovoLog per scale ACHS or Q6hrs while NPO * Goal Range: Low 110 mg/dL - High 140 mg/dL * Correction Factor: 40 mg/dL/unit * Nutritional / Prandial insulin per carb ratio of 1 unit per 20 grams CHO consumed PLAN FOR DISCHARGE: * A1c of 6.1% is at goal. Resumption of metformin on discharge will depend upon renal fxn recovery. AACE and ADA state use in patients with eGFR 30-45 can be considered with close monitoring however maximum recommended dose in this setting is 500mg BID. If his GFR has improved to this range one may consider resumption of his 500mg daily dose.
--- NOTE | 2021-07-04 20:15 | Billing Data ---
Date of Service July 04, 2021 Coding Level of Care Code 82311 Subseq Hosp Care Lvl 2
[2021-07-04] MEDS: traZODone HCL 50 MG TAB PO SCH (20:36)
[2021-07-05] MEDS: CARBIDOPA/LEVODOPA 25/100MG TAB PO SCH ×4 (05:43→17:37)
--- NOTE | 2021-07-05 08:04 | Hospitalist Progress Note ---
Date of Service July 05, 2021 Assessment & Plan (1) Acute kidney injury: Plan: 75yo Male with PMH exposure to agent orange, parkinson's, CABGx4, DM2, HTN, peripheral neuropathy sent by [place] PCP due to elevated creatinine found incidentally on yearly routine labs. FREDDIE - improving -Creatinine 3.42, BUN 40 on admit, found incidentally on outpt labs. -UA neg, WBC wnl - Renal US: 4.3cm cyst on right kidney lower pole, no hydronephrosis - Cr downtrending further today to 2.21 -Nephrology consulted: - Suspect FREDDIE due to relative hypotension - Continue to hold ARB and thiazide - Baseline Cr is unknown. Awaiting records[facility]labs from [facility] - Creatinine improving but still elevated - Will continue LR @ 125 cc/hr - Monitor BMP in AM Parkinson's -continue home carbidopa/levodopa -continue rasagiline mosyfate -continue HS trazadone -reduced gabapentin to 300mg BID given kidney function CAD - h/o CABGx4 -continue home atorvastatin, ASA -hold chlorthalidone, losartan DM2 -hold metformin given kidney function -SSI while admitted HTN -hold chlorthalidone, losartan given his kidney function - Per nephro c/s: - Recommend avoiding GARIMA/ARB due to FREDDIE associated w/ bradycardia/hypotension - Can start low dose amlodipine if BP trending up - Started amlodipine 5mg daily BPH -continue Flomax Constipation -Miralax PRN FENGI: heart healthy diet, LR 125cc/hr Code Status: conditional DNR DVT PPX: Heparin SQ Dispo: Med/Tele (2) Parkinson disease: (3) Hx of CABG: (4) Diabetes mellitus: (5) Hypertension: Admission and Anticipated Discharge Date Admission Date: July 02, 2021 Supervising Physician Co-Signing Physician Notes Patient seen and examined, chart reviewed, case discussed with Dr. Lakshmi Prescott and I agree with the assessment and plan as outlined above. In brief, patient is a 75yo male with history of HTN, DM, PD and CAD s/p CABG x 4V presenting with incidentally discovered FREDDIE with BUN of 40 and Cr of 3.42. Patient denies urinary complaints. He is uncertain of preexisting renal disease. No recent illness although he does describe a rash appx 1 week ago which has since resolved. No new medications or changes in medications. Patient states he is eating well at home. No diarrhea, vomiting. HEENT - NC/AT, PERRL, MMM, neck supple Clear yellow urine in urinal at bedside Labs and images reviewed. Assessment/Plan - 75yo male with HTN, DM, CAD and PD presenting with worsening renal function found incidentally on labs. Uncertain of baseline renal function - no previous labs in system. Patient does not provide history consistent with volume loss - states he is eating well at home, no vomiting or diarrhea Recent rash ?viral infection ?allergic reaction ?strep infection UA is not consistent with infection or inflammation. No blood, protein, leukocytes. Renal US without obstruction or hydronephrosis. Suggests medical renal disease - patient with history of DM and CAD Patient is making urine and is metabolically stable - no need for HD -Creatinine continues to improve. Will continue IVF. -Appreciate input from Nephro. -montior UOP -Avoid nephrotoxic agents - Hold Losartan and Clorthalidone -Renal dosing where needed - Gabapentin reduced -Ordered Nephrology consultation. -Remainder as above Subjective Overnight resident received a page about concern by the patient that his blood pressure was a bit high in the context of having an established AAA. Overnight resident reassured patient and assured him we would address the issue this morning. When seen at bedside in the a.m. he is sitting comfortably at bedside chair and denies any current complaints including chest pain, palpitations, shortness of breath, cough, abdominal pain, fever, chills, diarrhea, constipation. We discussed that the medications he was previously on for blood pressure could affect his kidneys adversely and as such, were being held. Per nephrology recommendations I informed him we could start amlodipine to which he agreed. Review of Systems Review of Systems: per subjective Physical Exam Physical Exam: GENERAL: A&Ox3. NAD. HEENT: PERRL, EOMI. Moist mucous membranes. CHEST/LUNGS: CTAB A/P. No crackles, wheezes, rales, rhonchi. HEART: RRR. No m/g/r. Results & Data Results & Data ([facility]) Vital Signs (Past 12 Hours) Vital Signs Temp Pulse Pulse Pulse Resp BP Pulse Ox 07/05/21 08:00 36.3 C L 58 L 18 137/76 92 07/05/21 07:18 52 L 07/05/21 03:07 36.7 C 41 L 17 175/94 H 94 07/05/21 00:18 58 L 07/04/21 23:04 36.7 C 42 L 18 139/74 93 Resident Activity Tracking Resident Involvement: Resident Care Provided Care Provided: Adult [facility] Medicine
[2021-07-05] MEDS: amLODIPine BESYLATE 5 MG TAB PO SCH (08:05)
[2021-07-05] MEDS: ATORVASTATIN 40 MG TAB PO SCH (08:06)
[2021-07-05] MEDS: MULTIVITAMIN TAB PO SCH (08:06)
[2021-07-05] MEDS: ASPIRIN 81 MG ECTAB PO SCH (08:06)
[2021-07-05] MEDS: HEPARIN SOD 5,000 UNIT/0.5 ML VIAL SQ SCH ×2 (08:06→21:44)
[2021-07-05] MEDS: GABAPENTIN 300 MG CAP PO SCH ×2 (08:06→21:44)
[2021-07-05] MEDS: OMEGA-3 (PURIFIED FISH OIL) 1 GM CAP PO SCH ×4 (08:06→21:44)
[2021-07-05] MEDS: TAMSULOSIN HCL 0.4 MG CAP PO SCH (08:06)
[2021-07-05] MEDS: INSULIN ASPART PER UNIT SC SCH ×4 (08:13→21:33)
[2021-07-05 08:20] LABS: BUN Creatinine Ratio 15.9 (10-20); Calcium 8.3 mg/dl (8.5-10.1); Creatinine Clr Calc Pharmacy 40.1 ml/min; Est GFR (Non-African American) 28.5 ml/min; Potassium 3.8 mmol/L (3.5-5.1)
--- NOTE | 2021-07-05 08:55 | Nephrology Progress Note ---
Date of Service July 05, 2021 Assessment & Plan (1) Acute kidney injury: Plan: * Cr has improved from 3.4 down to 2.2 with conservative measures * Patient is nonoliguric. Urine sediment is non-nephritic. Renal US is negative for obstruction. Suspect FREDDIE due to relative hypotension * Continue to hold ARB and thiazide * Baseline Cr is unknown. Awaiting records/labs from [facility] (2) Hypertension: Plan: * Patient reports labile BP, most recently low and associated w/ syncopal event * Losartan and Chlorthalidone were stopped due to FREDDIE * Low dose Amlodipine has been started for BP management. BP is currently acceptable * Records from Cardiology have been received and reviewed. Patient has thoracic aortic aneurysm. Beta blaire therapy has not been started as he has a h/o relative bradycardia. Recommend avoiding GARIMA/ARB due to FREDDIE associated w/ bradycardia/hypotension (3) Diabetes mellitus: Plan: * Recommend holding Metformin until FREDDIE resolves and manage DM w/ RISS (4) Neuropathy: Plan: * Recommend reducing Gabapentin to 300 mg daily until FREDDIE resolves (5) Parkinson disease: Admission and Anticipated Discharge Date Admission Date: July 02, 2021 Subjective Mr. Franklin was evaluated in his hospital room this morning. He denied fever, flank pain, difficulty voiding or uremic symptoms. He voiced no new medical concerns. Review of Systems Constitutional: + weakness; no fever Eyes: no worsening vision Ear, Nose, Mouth, Throat: no problem reported Respiratory: no cough and no dyspnea Cardiovascular: no chest pain, no palpitations and no edema Gastrointestinal: no abdominal pain, no nausea, no vomiting and no diarrhea/loose stools Genitourinary: no dysuria, no urinary hesitancy or no hematuria Musculoskeletal: no back pain Integumentary: no rash Neurologic: no confusion Physical Exam Constitutional: not in distress Eyes: PERRL, conjunctivae normal, anicteric sclerae ENMT: external ear and nose normal, oropharynx normal Neck: trachea midline, no thyromegaly Respiratory: normal respiratory effort, lungs clear to auscultation Cardiovascular: Rate/Rhythm: regular rate and regular rhythm Extremities: + edema (trace pretibial pitting edema) Gastrointestinal (Abdomen): normal bowel sounds, soft, nontender, no hepatosplenomegaly Skin: no rashes, warm and dry Neurologic: awake; not confused Motor/Sensory: + tremor Results & Data ([place]) Vital Signs (Past 12 Hours) Vital Signs Temp Pulse Pulse Pulse Resp BP Pulse Ox 07/05/21 08:00 36.3 C L 58 L 18 137/76 92 07/05/21 07:18 52 L 07/05/21 03:07 36.7 C 41 L 17 175/94 H 94 07/05/21 00:18 58 L 07/04/21 23:04 36.7 C 42 L 18 139/74 93 Laboratory Results Laboratory Tests 07/03/21 07/04/21 07/05/21 01:04 06:30 07:23 WBC 6.58 Hgb 11.6 L Hct 34.4 L Plt Count 239 Potassium 3.8 Chloride 108 H Carbon Dioxide 24 BUN 35 H Creatinine 2.21 H D Glucose 87 Urine Color Yellow Urine Appearance Clear Urine pH 7.0 Ur Specific [place] 1.007 Urine Protein Negative Urine Glucose (UA) Negative Urine Ketones Negative Urine Blood Negative Urine Nitrite Negative Urine Bilirubin Negative Urine Urobilinogen Negative Ur Leukocyte Esterase Negative PG Care Time/CCT Total # of Minutes Spent Total Time Spent with Patient: Total time spent is greater than 50% in coordination of care (as documented) at patient's floor/unit and/or counseling patient: Coding Level of Care Code 06180 Subseq Hosp Care Lvl 3 Diagnoses Acute kidney injury N17.9 Hypertension I10 Diabetes mellitus E11.9 Neuropathy G62.9 Parkinson disease G20
[2021-07-05] MEDS: LACTATED RINGER'S 1,000 ML IV SCH ×2 (12:16→21:44)
[2021-07-05] MEDS: traZODone HCL 50 MG TAB PO SCH (21:44)
--- NOTE | 2021-07-05 22:22 | Billing Data ---
Date of Service July 05, 2021 Coding Level of Care Code 72823 Subseq Hosp Care Lvl 2
[2021-07-06] MEDS: LACTATED RINGER'S 1,000 ML IV SCH (05:58)
[2021-07-06] MEDS: CARBIDOPA/LEVODOPA 25/100MG TAB PO SCH ×2 (06:01→10:34)
[2021-07-06] MEDS: GABAPENTIN 300 MG CAP PO SCH (07:52)
[2021-07-06] MEDS: OMEGA-3 (PURIFIED FISH OIL) 1 GM CAP PO SCH (07:52)
[2021-07-06] MEDS: amLODIPine BESYLATE 5 MG TAB PO SCH (07:52)
[2021-07-06] MEDS: TAMSULOSIN HCL 0.4 MG CAP PO SCH (07:53)
[2021-07-06] MEDS: HEPARIN SOD 5,000 UNIT/0.5 ML VIAL SQ SCH (07:53)
[2021-07-06] MEDS: ASPIRIN 81 MG ECTAB PO SCH (07:53)
[2021-07-06] MEDS: MULTIVITAMIN TAB PO SCH (07:53)
[2021-07-06] MEDS: ATORVASTATIN 40 MG TAB PO SCH (07:53)
[2021-07-06 08:10] VITALS: TEMP 98.8; O2SAT 94
[2021-07-06] MEDS: INSULIN ASPART PER UNIT SC SCH (08:28)
[2021-07-06 08:31] LABS: BUN Creatinine Ratio 16.7 (10-20); Calcium 8.3 mg/dl (8.5-10.1); Creatinine Clr Calc Pharmacy 44.2 ml/min; Est GFR (African American) 37.3 ml/min; Est GFR (Non-African American) 32.2 ml/min; Potassium 3.7 mmol/L (3.5-5.1)
--- NOTE | 2021-07-06 08:36 | Discharge Summary ---
Date of Service July 06, 2021 Admission HPI Per Admitting Provider 75yo Male sent by [place] PCP due to elevated creatinine found incidentally on yearly routine labs. PMH exposure to agent orange, [place] , parkinson's, CABGx4, DM2, HTN, peripheral neuropathy. Patient seen at bedside, calm comfortable cooperative, states he's not experiencing any symptoms at this time. He states 1 week ago he suddenly developed a rash across b/l arms, legs, and torso within a day, stated it was not painful or itchy, no other symptoms or illness, has never happened before, resolved after 1 week without intervention. Per picture it was a pink macular patchy rash, uniform in color. He states that he has had ongoing 'bladder pain' for 5-6 months, no difficulty or hesitancy urinating, cardiology has tried decreasing his water pill which hasn't helped, was originally going to see urology for the first time today missed appointment. Otherwise he states he has chronic constipation, secondary to his parkinsons. Patient states most of his medical conditions are secondary to his agent orange exposure in [place]. [facility] 4 months. He follows with Dr. Rivera in cardiology after his cabgx4, in 1996 and 2002. Patient follows with neurology for parkinsons's, follows with podiatry. He lives alone without pets, no recent illness or exposures. He is in charge of his medication, takes them regularly. He denies smoking, alcohol, illicit drugs, drinks 1c coffee daily. He has COVID and flu vaccination. Per discussion with patient he is DNR, is ok with intubation. Principal Diagnosis FREDDIE Discharge Exam GENERAL: A&Ox3. NAD. HEENT: PERRL, EOMI. Moist mucous membranes. CHEST/LUNGS: CTAB A/P. No crackles, wheezes, rales, rhonchi. HEART: RRR. No m/g/r. Discharge Data Allergies Allergy/AdvReac Type Severity Reaction Status Date / Time No Known Allergies Allergy Verified 07/02/21 21:02 Consultations 07/02/21 21:02 ED Decision to Admit Stat 07/03/21 09:11 Consult Nephrology Routine Ordered Studies 07/02/21 19:40 US renal/blad retro comp Stat Hospital Course (1) Acute kidney injury: 75yo Male with PMH exposure to agent orange, parkinson's, CABGx4, DM2, HTN, peripheral neuropathy sent by [place] PCP due to elevated creatinine found incidentally on yearly routine labs. FREDDIE - improving -Creatinine improved from 3.42 to 2.0 on DC -UA neg, WBC wnl - Renal US: 4.3cm cyst on right kidney lower pole, no hydronephrosis -Nephrology consulted: - Suspect FREDDIE due to relative hypotension - Continue to hold ARB and thiazide - Baseline Cr is unknown. [facility]abs [facility] - No further Nephrology evaluation indicated. OK to discharge to home w/ close follow up at [facility] - Recommend close PCP f/u within a week with repeat BMP to ensure continued resolution HTN -hold chlorthalidone, losartan given his kidney function - Per nephro c/s: - Recommend avoiding GARIMA/ARB due to FREDDIE associated w/ bradycardia/hypotension - Started amlodipine 5mg daily per npehro recs; continue on DC -- additional agents/dose changes per PCP DM2 -hold metformin given kidney function -SSI while admitted - Nephro: - Recommend holding Metformin until FREDDIE resolves Parkinson's -continue home carbidopa/levodopa -continue rasagiline mosyfate -continue HS trazadone -reduced gabapentin to 300mg daily until FREDDIE resolves per Nephro CAD - h/o CABGx4 -continue home atorvastatin, ASA -hold chlorthalidone, losartan BPH -continue Flomax Constipation -Miralax PRN Dispo: Home, Self-care (2) Parkinson disease: (3) Hx of CABG: (4) Diabetes mellitus: (5) Hypertension: Total Time Total Time Spent Total Time Spent (In Minutes): see attending attestation Discharge Plan Discharge Items Patient Disposition: Home - Self-Care Reason For Visit: FREDDIE Discharge Diagnosis: FREDDIE Activity: Per Instructions section Non-emergency contact: Primary Care Provider Call non-emergency contact if: you have any medication questions and your symptoms worsen Follow-up/Referrals: Shaan Bui, [Primary Care Provider] - (PLEASE CALL YOUR PRIMARY CARE PROVIDER TO SCHEDULE A FOLLOW-UP DISCHARGE APPOINTMENT WITHIN 7-10 DAYS.) Diet: Heart Healthy Addtl Attending Provider Instructions: You were admitted to [facility] due to an acute kidney injury that was found on your outpatient lab work. As such, you were evaluated by Nephrology, who though the kidney injury might have been caused by your blood pressure being too low and not getting enough blood flow to your kidneys. Your blood pressure medications were stopped and intravenous hydration was given to improve your blood flow. Your kidneys steadily improved -- at the time of discharge your labs still indicate mild kidney injury but since the numbers are trending towards normal, we believe you are safe to return home. We will start you on a different blood pressure medication called amlodipine, which you will take daily. Please stop taking your losartan and chlorthalidone. This will hopefully avoid overtreatment. We also recommend that you hold your metformin for now until you follow up with your PCP to ensure resolution of your kidney injury. Additionally, you should continue to take your gabapentin but only once daily while your kidney injury resolves. Follow up with your PCP is recommended within the next week for repeat lab work. If you have worsening symptoms or new sever, concerning symptoms please call your PCP or return to the Emergency Room fur further evaluation. Pending Studies at Discharge: No Stand-Alone Forms: [facility], Smoking Cessation Medications and DC Order Prescriptions: New amlodipine 5 mg tablet 5 mg PO DAILY 30 Days Qty: 30 RF: 0 Continued multivitamin Tablet 1 tab PO DAILY RF: 0 metformin 500 mg Tablet 500 mg PO DAILY RF: 0 atorvastatin 80 mg Tablet 80 mg PO DAILY RF: 0 trazodone 50 mg Tablet 50 mg PO HS RF: 0 aspirin 81 mg Tablet,Delayed Release (Dr/Ec) 81 mg PO DAILY RF: 0 tamsulosin [Flomax] 0.4 mg Capsule 0.4 mg PO DAILY RF: 0 carbidopa-levodopa 25-100 mg Tablet 1.5 tab PO QID RF: 0 rasagiline 1 mg Tablet 1 mg PO DAILY RF: 0 omega 4-pct-fnc-fish oil [Fish Oil] 1,000 mg (120 mg-180 mg) Capsule 1 cap PO QID RF: 0 Changed gabapentin 300 mg Capsule 300 mg PO DAILY Qty: 0 RF: 0 Discontinued chlorthalidone 50 mg Tablet 25 mg PO DAILY RF: 0 losartan 100 mg Tablet 100 mg PO DAILY RF: 0 Discharge Orders: Discharge Order (Routine); Ordered 07/06/21 Ordered By: Rodrick Becker/Other Patient Handouts: Managing Type 2 Diabetes, Special Foot Care for Diabetes Admission Data Admit Date/Time: 07/02/21 22:22 Attending Provider: Pal Esquivel Admit Provider: Shaye Parra Primary Care Provider: Shaan Bui Other Providers: Elaine Bob ; [facility] ; Les Busby. Other Interventions: Discharge Summary Assessment (RN) Last Done: 07/06/21 11:49 Supervising Physician Co-Signing Physician Notes Patient seen and examined, chart reviewed, case discussed with Dr. Lakshmi Prescott and I agree with the assessment and plan as above except as otherwise no chriss General: A&Ox3. NAD. Cooperative. HEENT: Atraumatic, normocephalic. Pulm: CTAB A&P. -wheezes, -rales, -rhonchi. Symmetrical chest rise. No increase work of breathing. No respiratory distress. Cardiac: RRR, -mrg. Radial pulses intact and symmetrical. Abdominal: Nontender, nondistended, soft. BS present. All labs and images reviewed 75-year-old male with past medical history of agent orange exposure, CABG, diabetes, hypertension who presented with FREDDIE. Creatinine is downtrending. Unclear baseline, but clinically stable and improving. Reasonable to discharge with outpatient BMP to follow progression. Losartan/chlorthalidone held for FREDDIE and also for prerenal contribution to presentation, started on amlodipine. Discussed risk of hypotension and leg swelling, patient will follow up with PCP for further. Total time spent including review of labs and images, direct patient care, documentation, and discussion of case with medical massage therapist team approximately 35 minutes. Resident Activity Tracking Resident Involvement: Resident Care Provided Care Provided: Adult Hospital Medicine
--- NOTE | 2021-07-06 09:36 | Nephrology Progress Note ---
Date of Service July 06, 2021 Assessment & Plan (1) Acute kidney injury: Plan: * Cr has improved from 3.4 down to 2.0 with conservative measures * Patient is nonoliguric. Urine sediment is non-nephritic. Renal US is negative for obstruction. Suspect FREDDIE due to relative hypotension * Continue to hold ARB and thiazide * Baseline Cr is unknown. Awaiting records/labs from [facility] * No further Nephrology evaluation indicated. OK to discharge to home w/ close follow up at [facility] (2) Hypertension: Plan: * Patient reports labile BP, most recently low and associated w/ syncopal event * Losartan and Chlorthalidone were stopped due to FREDDIE * Amlodipine 5mg has been started for BP management * Records from Cardiology have been received and reviewed. Patient has thoracic aortic aneurysm. Beta blaire therapy has not been started as he has a h/o relative bradycardia. Recommend avoiding GARIMA/ARB due to FREDDIE associated w/ bradycardia/hypotension (3) Diabetes mellitus: Plan: * Recommend holding Metformin until FREDDIE resolves and manage DM w/ RISS (4) Neuropathy: Plan: * Recommend reducing Gabapentin to 300 mg daily until FREDDIE resolves (5) Parkinson disease: Admission and Anticipated Discharge Date Admission Date: July 02, 2021 Subjective Mr. Franklin was evaluated in his hospital room this morning. He denied fever, flank pain, difficulty voiding or uremic symptoms. He voiced no new medical concerns. Review of Systems Constitutional: + weakness; no fever Eyes: no worsening vision Ear, Nose, Mouth, Throat: no problem reported Respiratory: no cough and no dyspnea Cardiovascular: no chest pain, no palpitations and no edema Gastrointestinal: no abdominal pain, no nausea, no vomiting and no diarrhea/loose stools Genitourinary: no dysuria, no urinary hesitancy or no hematuria Musculoskeletal: no back pain Integumentary: no rash Neurologic: no confusion Physical Exam Constitutional: not in distress Eyes: PERRL, conjunctivae normal, anicteric sclerae ENMT: external ear and nose normal, oropharynx normal Neck: trachea midline, no thyromegaly Respiratory: normal respiratory effort, lungs clear to auscultation Cardiovascular: Rate/Rhythm: regular rate and regular rhythm Extremities: + edema (trace pretibial pitting edema) Gastrointestinal (Abdomen): normal bowel sounds, soft, nontender, no hepatosplenomegaly Skin: no rashes, warm and dry Neurologic: awake; not confused Motor/Sensory: + tremor Results & Data ([facility]) Vital Signs (Past 12 Hours) Vital Signs Temp Pulse Resp BP Pulse Ox 07/06/21 08:09 37.1 C 45 L 18 165/84 H 94 07/06/21 03:08 37 C 44 L 17 152/78 H 92 07/05/21 23:25 37.2 C 48 L 16 155/79 H 93 Laboratory Results Laboratory Tests 07/06/21 07:35 Sodium 140 Potassium 3.7 Chloride 108 H Carbon Dioxide 26 BUN 33 H Creatinine 2.00 H Calcium 8.3 L PG Care Time/CCT Total # of Minutes Spent Total Time Spent with Patient: Total time spent is greater than 50% in coordination of care (as documented) at patient's floor/unit and/or counseling patient: Coding Level of Care Code 85386 Subseq Hosp Care Lvl 3 Diagnoses Acute kidney injury N17.9 Hypertension I10 Diabetes mellitus E11.9 Neuropathy G62.9 Parkinson disease G20
[2021-07-06 11:50] VITALS: BP 167/84; PULSE 47
--- NOTE | 2021-07-06 17:42 | Billing Data ---
Date of Service July 06, 2021 Coding Level of Care Code D/C DAY MANAGEMENT >30 MINS
== END 2021-07-06 12:35 | disposition home or self-care (01) | DRG 684 ==
LOC: ED 18:29 → SUATTDRO 22:22 → EDINP 22:22 → 2N 23:45
DX: K59.00 Constipation, unspecified; E11.40 Type 2 diabetes mellitus with diabetic neuropathy, unspecified; K21.9 Gastro-esophageal reflux disease without esophagitis; Z95.5 Presence of coronary angioplasty implant and graft; N40.0 Benign prostatic hyperplasia without lower urinary tract symptoms; R39.89 Other symptoms and signs involving the genitourinary system; D64.9 Anemia, unspecified; I95.89 Other hypotension; Z66 Do not resuscitate; G20 Parkinson's disease; Z79.82 Long term (current) use of aspirin; Z79.84 Long term (current) use of oral hypoglycemic drugs; I10 Essential (primary) hypertension; Z77.098 Contact with and (suspected) exposure to other hazardous, chiefly nonmedicinal, chemicals; I25.10 Atherosclerotic heart disease of native coronary artery without angina pectoris; Z95.1 Presence of aortocoronary bypass graft; N17.9 Acute kidney failure, unspecified